=== PATIENT | female | born 1955 | race Caucasian/White ===

== ENCOUNTER 2018-12-23 07:42 | Day surgery (SDC) | payer OTHER, SELFPAY ==
[2018-12-23] VITALS (7 sets, daily range): BP systolic 93–135; BP diastolic 55–78; PULSE 61–70; RESP 15–100; TEMP 36.2–36.9; O2SAT 1–100; BMI 18.5
[2018-12-23] MEDS: SODIUM CHLORIDE 0.9% 1,000 ML 84 ML IV (09:09)
--- NOTE | 2018-12-23 10:07 | PM.HP.1 ---
History of Present Illness Date Patient Seen: 12/23/18 Time Patient Seen: 10:07 Chief complaint: [id number] SCREENING COLONOSCOPY Narrative: Very pleasant 63-year-old lady who is here for screening colonoscopy. Her last colonoscopy was in 2008 was normal. She denies any problems or symptoms related to function for GI tract. She reports she needs a colonoscopy as per the health maintenance program pain Patient History Medical History Elevated LFTs (Chronic) Liver disease (Chronic) Menopause (Chronic) Vitamin D deficiency (Chronic) Family & Social History Family History: Reviewed 12/23/18 by Amber Smart MD Social History: household members spouse lives independently Yes Tobacco & Substance use: Smoking Status Never smoker alcohol intake never Meds Home Medications Medication Instructions Recorded Confirmed Type cholecalciferol (vitamin D3) 2 tab PO DAILY #0 09/23/17 12/23/18 History [Vitamin D3] calcium carbonate 500 mg (1,250 1 tab PO DAILY #90 tab 07/27/18 12/23/18 Rx mg)-vitamin D3 400 unit tablet estradiol 10 mcg vaginal tablet 10 mcg VAG 2XW #30 tab 07/27/18 12/23/18 Rx estradiol-norethindrone acet 0.5 1 tab PO EVERY OTHER DAY #84 tab 10/05/18 12/23/18 Rx mg-0.1 mg tablet acyclovir [Zovirax] 400 mg PO TID PRN 12/23/18 12/23/18 History valacyclovir 500 mg PO QDAY PRN 12/23/18 12/23/18 History Allergies Allergy/AdvReac Type Severity Reaction Status Date / Time erythromycin base AdvReac Mild STOMACH Verified 12/23/18 08:44 UPSET Review of Systems Review of Systems All systems reviewed & are unremarkable except as noted in HPI and below Exam Vital Signs (past 8 hours): - 12/23/18 08:45 Temperature 97.4 F L Pulse Rate 70 Respiratory Rate 16 Blood Pressure 135/78 Pulse Oximetry 98 Oxygen Delivery Method Room Air Narrative Exam Narrative: One. [age] year old lady in no obvious distress HEENT: Normocephalic and atraumatic, pupils equal round reactive to light accommodation with anicteric sclera Lungs: Clear to auscultation bilaterally Heart: Regular rate and rhythm without murmur rub or gallop Abdomen: Soft, nontender, active bowel sounds Extremities: Warm and well perfused and without edema. Assessment & Plan Plan: Assessment/Plan Narrative: One full 63-year-old lady here for screening colonoscopy. We discussed the risks and benefits of the procedure and she has expressed a desire to complete it today.
[2018-12-23] MEDS: MIDAZOLAM 5 MG/5 ML VIAL IV (10:39)
[2018-12-23] MEDS: fentaNYL 250 MCG/5 ML INJ IV (10:40)
--- NOTE | 2018-12-23 10:46 | PM.OP.1 ---
Operative Date/Time/Diagnoses Date of procedure: 12/23/18 Time of procedure: 10:46 Pre-op diagnosis: Screening Post-op diagnosis: same Procedure & Clinicians Procedure: Colonoscopy to the cecum Same procedure as scheduled: Yes Indications: Last colonoscopy 10 years ago Surgeon: Amber Smart Click Yes if Unassisted: Yes Anesthesia Type: Sedation (Versed 9 mg; fentanyl 300 mcg) Operative Notes Findings: 1. Excellent prep 2. No polyps or mass lesions 3. Very tortuous and atonic colon 4. Minimal diverticulosis 5. Grade 1 internal hemorrhoids Procedure in detail: After obtaining informed consent, the patient was brought to the GI suite and placed in the left lateral decubitus position on the examination table. After placement of appropriate monitors, the patient was given incremental doses of Versed and Fentanyl until an appropriate level of sedation was achieved. A time out was held per SCOAP protocol. A digital rectal examination was performed and did not reveal any masses or obstructing lesions. The colonoscope was gently passed into the patient's anus and the entire colon navigated to the level of the cecum with significant difficulty. Multiple changes of position as well as external pressure were required to complete the journey to the cecum. Once in the cecum, the scope was withdrawn being sure to go before and beyond all mucosal folds and prominences and get an excellent examination. The findings are noted above. At the level of the rectal vault, the scope was retroflexed and the internal anal canal was examined. The scope was straightened and air aspirated from the colon. The instrument was removed from the patient's body and the procedure was concluded. The patient was allowed to awaken from sedation without difficulty and taken to the post-anesthesia care unit in good condition. Total sedation time 29 min Total withdrawal time was 8 min 51 sec Complications: none Condition: stable Disposition: PACU Plan for aftercare: 1. Discharge to home 2. Plan for next colonoscopy in 10 years or as clinically indicated
== END 2018-12-23 12:26 | disposition home or self-care (01) ==
PROVIDERS: Family Provider Family Medicine; PCP Family Medicine; Visit Provider Surgery
PROC: 0DJD8ZZ Inspection of Lower Intestinal Tract, Via Natural or Artificial Opening Endoscopic (ICD-10-PCS; CPT 45378; principal; 2018-12-23 09:45)
DX: Z12.11 Encounter for screening for malignant neoplasm of colon (principal); K57.30 Diverticulosis of large intestine without perforation or abscess without bleeding; K64.0 First degree hemorrhoids; K76.9 Liver disease, unspecified; E55.9 Vitamin D deficiency, unspecified
CPT/HCPCS: 45378; 99152; 99153; J2250; J3010

== ENCOUNTER → 2019-09-23 11:49 | Outpatient (CLI) | payer OTHER, SELFPAY ==
--- NOTE | 2019-09-23 11:50 | DI.MG.S_ITS ---
BILATERAL DIGITAL SCREENING MAMMOGRAM 3D/2D WITH CAD: 09/23/2019 CLINICAL: Routine screening. Family history of breast cancer. Comparison is made to exams dated: 10/26/2017 mammogram, 11/18/2016 mammogram, and 11/19/2015 mammogram - [facility]. The tissue of both breasts is extremely dense, which lowers the sensitivity of mammography. Current study was also evaluated with a Computer Aided Detection (CAD) system. There is an irregular asymmetry in the left breast posterior depth medial region seen on the craniocaudal view only. No other significant masses, calcifications, or other findings are seen in either breast. IMPRESSION: INCOMPLETE: NEEDS ADDITIONAL IMAGING EVALUATION The irregular asymmetry in the left breast is indeterminate. Additional views with possible ultrasound are recommended. This exam was interpreted at Station ID: [id number]. NOTE: For mammograms, a report in lay terms will be sent to the patient. Approximately 15% of breast malignancies will not be visualized mammographically. In the management of a palpable breast mass, a negative mammogram must not discourage biopsy of a clinically suspicious lesion. Electronically Signed By: Haider García M.D. ecl/:09/23/2019 22:39:34 letter sent: Additional Imaging Needed ACR BI-RADS Category 0: Incomplete 3340F
== END ==
PROVIDERS: PCP Family Medicine; Visit Provider Obstetrics & Gynecology
DX: Z12.31 Encounter for screening mammogram for malignant neoplasm of breast (principal); Z80.3 Family history of malignant neoplasm of breast
CPT/HCPCS: 77063; 77067

== ENCOUNTER → 2019-10-06 10:05 | Outpatient (CLI) | payer OTHER, SELFPAY ==
--- NOTE | 2019-10-06 | DI.MG.S_ITS ---
UNILATERAL LEFT DIGITAL DIAGNOSTIC MAMMOGRAM 3D/2D WITH ADDITIONAL VIEWS: 10/06/2019 CLINICAL: Additional evaluation requested from prior study. Comparison is made to exams dated: 09/23/2019 mammogram, 10/26/2017 mammogram, and 11/18/2016 mammogram - [facility]. The tissue of left breast is heterogeneously dense. This may lower the sensitivity of mammography. The previously described oval asymmetry with indistinct margins in the left breast middle depth medial region seen on the craniocaudal view only is not seen on additional views. No other significant masses or calcifications are seen in the breast. IMPRESSION: There is no mammographic evidence of malignancy. A 1 year screening mammogram is recommended. This exam was interpreted at Station ID: [id number]. NOTE: For mammograms, a report in lay terms will be sent to the patient. Approximately 15% of breast malignancies will not be visualized mammographically. In the management of a palpable breast mass, a negative mammogram must not discourage biopsy of a clinically suspicious lesion. Electronically Signed By: Ramy bradley/:10/06/2019 10:40:41 letter sent: Normal Exam ACR BI-RADS Category 2: Benign Finding(s) 3342F
== END ==
PROVIDERS: PCP Family Medicine; Visit Provider Specialist
DX: R92.8 Other abnormal and inconclusive findings on diagnostic imaging of breast (principal)
CPT/HCPCS: 77065; G0279

== ENCOUNTER → 2020-09-28 15:21 | Outpatient (CLI) | payer OTHER, SELFPAY ==
--- NOTE | 2020-09-28 15:23 | DI.MG.S_ITS ---
BILATERAL DIGITAL SCREENING MAMMOGRAM 3D/2D WITH CAD: 09/28/2020 CLINICAL: Routine screening. Family history of breast cancer. Comparison is made to exams dated: 09/23/2019 mammogram, 10/26/2017 mammogram, and 11/18/2016 mammogram - [facility]. The tissue of both breasts is heterogeneously dense. This may lower the sensitivity of mammography. Current study was also evaluated with a Computer Aided Detection (CAD) system. There is a possible developing new 0.4 cm oval focal asymmetry with fine calcifications in the right breast at 6 o'clock posterior depth. No other significant masses, calcifications, or other findings are seen in either breast. IMPRESSION: INCOMPLETE: NEEDS ADDITIONAL IMAGING EVALUATION The possible developing new 0.4 cm oval focal asymmetry in the right breast is indeterminate. Mediolateral and spot magnification views as well as additional views with possible ultrasound are recommended. This exam was interpreted at Station ID: [id number]. NOTE: For mammograms, a report in lay terms will be sent to the patient. Approximately 15% of breast malignancies will not be visualized mammographically. In the management of a palpable breast mass, a negative mammogram must not discourage biopsy of a clinically suspicious lesion. Electronically Signed By: Tyrese Butler M.D. aty/:09/28/2020 17:28:39 letter sent: Additional Imaging Needed ACR BI-RADS Category 0: Incomplete 3340F
== END ==
PROVIDERS: PCP Family Medicine; Referring Provider Obstetrics & Gynecology; Visit Provider Obstetrics & Gynecology
DX: Z12.31 Encounter for screening mammogram for malignant neoplasm of breast (principal); Z80.3 Family history of malignant neoplasm of breast; Z13.820 Encounter for screening for osteoporosis; M85.851 Other specified disorders of bone density and structure, right thigh; Z78.0 Asymptomatic menopausal state
CPT/HCPCS: 77063; 77067; 77080

== ENCOUNTER → 2020-12-14 09:36 | Outpatient (CLI) | payer OTHER, SELFPAY ==
[2020-12-14] MEDS: COVID-19 VACC(MODERNA-1)/PF 100 MCG/0.5 ML VIAL IM (09:44)
== END ==
PROVIDERS: PCP Obstetrics & Gynecology; Visit Provider Internal Medicine
DX: Z23 Encounter for immunization (principal)
CPT/HCPCS: 0011A; 91301

== ENCOUNTER → 2021-01-11 15:24 | Outpatient (CLI) | payer OTHER, SELFPAY ==
[2021-01-11] MEDS: COVID-19 VACC #2, MRNA(MOD) 100 MCG/0.5 ML VIAL IM (15:35)
== END ==
PROVIDERS: PCP Obstetrics & Gynecology; Visit Provider Internal Medicine
DX: Z23 Encounter for immunization (principal)
CPT/HCPCS: 0012A; 91301

== ENCOUNTER → 2021-11-01 16:40 | Outpatient (CLI) | payer OTHER, SELFPAY ==
--- NOTE | 2021-11-01 | DI.MG.S_ITS ---
BILATERAL DIGITAL SCREENING MAMMOGRAM 3D/2D WITH CAD: 11/01/2021 CLINICAL: Routine screening. Family history of breast cancer. Comparison is made to exams dated: 10/11/2020 mammogram - [facility], 09/28/2020 mammogram, 09/23/2019 mammogram, and 10/26/2017 mammogram - [facility]. There are scattered fibroglandular elements in both breasts. Current study was also evaluated with a Computer Aided Detection (CAD) system. There is a biopsy clip in the right breast. No significant masses, calcifications, or other findings are seen in either breast. There has been no significant interval change. IMPRESSION: NEGATIVE There is no mammographic evidence of malignancy. A 1 year screening mammogram is recommended. This exam was interpreted at Station ID: [id number]. NOTE: For mammograms, a report in lay terms will be sent to the patient. Approximately 15% of breast malignancies will not be visualized mammographically. In the management of a palpable breast mass, a negative mammogram must not discourage biopsy of a clinically suspicious lesion. Electronically Signed By: Rosalind rosas/nicki:11/01/2021 17:47:57 copy to: Tawana Norris letter sent: Normal Exam ACR BI-RADS Category 1: Negative 3341F
== END ==
PROVIDERS: PCP Family Medicine; Referring Provider Obstetrics & Gynecology; Visit Provider Obstetrics & Gynecology
DX: Z12.31 Encounter for screening mammogram for malignant neoplasm of breast (principal); Z80.3 Family history of malignant neoplasm of breast
CPT/HCPCS: 77063; 77067

== ENCOUNTER → 2022-06-06 10:10 | Outpatient (CLI) | payer OTHER, SELFPAY | PROVIDERS: PCP Family Medicine; Referring Provider Obstetrics & Gynecology; Visit Provider Obstetrics & Gynecology | DX: M85.89 Other specified disorders of bone density and structure, multiple sites (principal); E05.90 Thyrotoxicosis, unspecified without thyrotoxic crisis or storm | CPT/HCPCS: 77080 ==

== ENCOUNTER → 2022-12-05 11:04 | Outpatient (CLI) | payer MEDICARE, OTHER, SELFPAY ==
--- NOTE | 2022-12-05 | DI.MG.S_ITS ---
BILATERAL DIGITAL SCREENING MAMMOGRAM 3D/2D WITH CAD: 12/05/2022 CLINICAL: Routine screening. Family history of breast cancer. Comparison is made to exams dated: 11/01/2021 mammogram - [facility], 10/11/2020 ultrasound - [facility], 09/28/2020 mammogram, and 09/23/2019 mammogram - [facility]. There are scattered areas of fibroglandular density in both breasts (category b / 25%-50% glandular tissue). Current study was also evaluated with a Computer Aided Detection (CAD) system. There is a biopsy clip in the right breast. No significant masses, calcifications, or other findings are seen in either breast. There has been no significant interval change. IMPRESSION: NEGATIVE There is no mammographic evidence of malignancy. A 1 year screening mammogram is recommended. Based on the Tyrer Cuzick model (a risk assessment model) the patient's lifetime risk is 14.8% and her 10 year risk is 7.3%. According to the ACR, ACS, and NCCN guidelines, an annual breast MRI exam along with mammogram is recommended if the patient's lifetime risk is 20% or greater. This exam was interpreted at Station ID: [id number]. NOTE: For mammograms, a report in lay terms will be sent to the patient. Approximately 15% of breast malignancies will not be visualized mammographically. In the management of a palpable breast mass, a negative mammogram must not discourage biopsy of a clinically suspicious lesion. Electronically Signed By: Tyrese pina/nicki:12/05/2022 19:20:41 copy to: Tawana Norris letter sent: Normal Exam ACR BI-RADS Category 1: Negative [id number]
== END ==
PROVIDERS: PCP Obstetrics & Gynecology; Referring Provider Family Medicine; Visit Provider Family Medicine
DX: Z12.31 Encounter for screening mammogram for malignant neoplasm of breast (principal); Z80.3 Family history of malignant neoplasm of breast
CPT/HCPCS: 77063; 77067

== ENCOUNTER → 2024-12-27 08:54 | Outpatient (CLI) | payer MEDICARE, OTHER, SELFPAY ==
[2024-12-30 04:39] LABS: Creatinine, Urine 157.9 mg/dL (Not Estab.); N-telo/Creat. Ratio 60 (0-89); N-telopeptide 841 nmol BCE (Not Estab.)
== END ==
PROVIDERS: PCP Family Medicine; Referring Provider Family Medicine; Visit Provider Family Medicine
DX: M85.80 Other specified disorders of bone density and structure, unspecified site (principal)
CPT/HCPCS: 82523

== ENCOUNTER → 2025-03-20 08:44 | Outpatient (CLI) | payer MEDICARE, OTHER, SELFPAY ==
[2025-03-21 06:38] LABS: Dehydroepiandrosterone Sulfate 40.4 ug/dL (20.4-186.6)
[2025-03-23 14:09] LABS: Creatinine, Urine 108.6 mg/dL (Not Estab.); N-telo/Creat. Ratio 52 (0-89); N-telopeptide 500 nmol BCE (Not Estab.)
[2025-04-05 11:13] LABS: Percent Free Testosterone 2.45 % (0.50-2.80); Testosterone Free 0.18 ng/dL (0.10-0.85); Testosterone Total 7.3 ng/dL (7.0-40.0)
== END ==
PROVIDERS: PCP Family Medicine; Referring Provider Family Medicine; Visit Provider Family Medicine
DX: M85.80 Other specified disorders of bone density and structure, unspecified site (principal)
CPT/HCPCS: 36415; 82523; 82627; 84402; 84403

== ENCOUNTER → 2025-09-27 08:43 | Outpatient (CLI) | payer MEDICARE, OTHER, SELFPAY ==
[2025-09-27 10:14] LABS: Add Manual Diff / Slide Review NO; Hematocrit 42.5 % (36-46); Hemoglobin 14.4 g/dL (12.0-16.0); Lymphocytes Absolute Auto 2100 /uL (1100-4500); Mean Corpuscular HGB Conc 33.8 % (30-36); Mean Corpuscular Hemoglobin 30.2 PG (26-34); Mean Corpuscular Volume 89.2 fL (80-100); Platelet Count 191 X10^3/uL (150-400)
[2025-09-27 10:51] LABS: Free T3, Triiodothyronine Free 3.79 pg/mL (2.77-5.27); Free T4, Direct Thyroxine 1.35 ng/dL (0.78-2.19)
[2025-09-27 11:05] LABS: TSH w/ Reflex to FT4 2.50 uIU/mL (0.47-4.68)
== END ==
PROVIDERS: PCP Family Medicine; Referring Provider Family Medicine; Visit Provider Family Medicine
DX: E05.90 Thyrotoxicosis, unspecified without thyrotoxic crisis or storm (principal); N95.1 Menopausal and female climacteric states; M85.80 Other specified disorders of bone density and structure, unspecified site
CPT/HCPCS: 36415; 82523; 82627; 84402; 84403; 84439; 84443; 84481; 85025